=== PATIENT | female | born 1995 | race Caucasian/White ===

== ENCOUNTER 2024-02-24 16:09 | Emergency (ER) | payer SELFPAY ==
[~2024-02-24] VITALS: Ht 167.6 cm; Wt 64.0 kg
[2024-02-24 16:16] VITALS: O2SAT 99
[2024-02-24 17:00] VITALS: BP 140/80; PULSE 122; RESP 16; TEMP 36.61404; O2SAT 99
== END 2024-02-24 17:03 | disposition home or self-care (01) ==
LOC: ER 16:09
DX: F10.129 Alcohol abuse with intoxication, unspecified (principal); Y90.9 Presence of alcohol in blood, level not specified
CPT/HCPCS: 99283